=== PATIENT | female | born 1940 | race Caucasian/White ===

== ENCOUNTER → 2021-05-23 | Outpatient (CLI) | payer MEDICARE, OTHER | LOC: WCC 06:42 | DX: T81.89XA Other complications of procedures, not elsewhere classified, initial encounter (principal); I10 Essential (primary) hypertension; M06.9 Rheumatoid arthritis, unspecified; E11.9 Type 2 diabetes mellitus without complications; Z88.2 Allergy status to sulfonamides; Z79.84 Long term (current) use of oral hypoglycemic drugs; Z79.899 Other long term (current) drug therapy ==

== ENCOUNTER → 2021-05-30 | Outpatient (CLI) | payer MEDICARE, OTHER | LOC: WCC 08:24 | DX: T81.89XA Other complications of procedures, not elsewhere classified, initial encounter (principal); I10 Essential (primary) hypertension; M06.9 Rheumatoid arthritis, unspecified; E11.9 Type 2 diabetes mellitus without complications; Z79.84 Long term (current) use of oral hypoglycemic drugs ==

== ENCOUNTER → 2021-06-13 | Outpatient (CLI) | payer MEDICARE, OTHER | LOC: WCC 09:00 | DX: S91.002D Unspecified open wound, left ankle, subsequent encounter (principal); I10 Essential (primary) hypertension; M79.672 Pain in left foot | CPT/HCPCS: 97597 ==